=== PATIENT | female | born 1990 | race Caucasian/White ===

== ENCOUNTER 2019-02-02 14:38 | Inpatient (IN) | payer BC ==
[~2019-02-02] VITALS: Ht 163.8 cm; Wt 94.5 kg
[2019-02-26] VITALS (18 sets, daily range): BP systolic 97–126; BP diastolic 48–80; PULSE 60–89; TEMP 97.7–98.5
[2019-02-26 06:19] LABS: BASO % 0.3 % (0.0-2.0); EOS # 0.1 (0.0-0.7); EOS % 0.9 % (0-4.0); GRAN # 7.5 (1.4-6.5); HEMATOCRIT 33.3 % (37.0-47.0); LYMPH # 2.6 (1.2-3.4); LYMPH % 23.5 % (20.0-51.0); MEAN CELL VOLUME 89 fl (80.0-100.0); MEAN CORPUSCULAR HEMOGLOBIN 30 pg (27.0-31.0); MEAN CORPUSCULAR HGB CONC 33 g/dl (33.0-37.0); MONO # 0.8 (0.1-0.6); MONO % 6.9 % (1.7-9.3); PLATELET COUNT 206 K/mm3 (130-400); RED BLOOD COUNT 3.73 M/mm3 (4.10-5.30)
[2019-02-26] MEDS ORDERED: ZOLOFT 25MG25 MG PO (06:51)
[2019-02-26] MEDS ORDERED: PRENATAL MVI (06:52)
[2019-02-26] MEDS ORDERED: MOTRIN 800800 MG/TAB PO (08:21)
[2019-02-26] MEDS ORDERED: PERCOCET 325 MG1 TA2 PO (08:21)
--- NOTE | 2019-02-26 12:47 | NUR ---
Initial visit; Mom and Grandma thanked Heel Stainer for offering congratulations for the new little girl in their family. Heel Stainer offered God's blessings and thanked Mom for choosing [place].
--- NOTE | 2019-02-26 15:19 | NUR ---
Pt to restroom via standby assist. [place] removed. Pericare, clean pad, mesh underwear, clean gown provided. Bleeding noted to be WNL. Slight swelling of perineum noted. Pt assisted back to bed.
[2019-02-27 04:02] VITALS: BP 103/52; PULSE 79; TEMP 97.1
[2019-02-27 08:00] VITALS: BP 97/61; PULSE 84; TEMP 97.7
[2019-02-27 17:45] VITALS: BP 115/56; PULSE 83; TEMP 98.3
[2019-02-27 22:15] VITALS: BP 110/62; PULSE 77; TEMP 98.2
[2019-02-28 09:00] VITALS: BP 120/51; PULSE 90; TEMP 97.8
== END 2019-02-28 11:45 | disposition home or self-care (01) | DRG 788 ==
LOC: OB 02-26 05:30 → LDR 02-26 14:37 → OB 02-28 11:45
PROVIDERS: ADMIT Obstetrics & Gynecology
PROC: 10D00Z1 Extraction of Products of Conception, Low, Open Approach (ICD-10-PCS; principal; 2019-02-26)
DX: O34.211 Maternal care for low transverse scar from previous cesarean delivery (principal); O99.344 Other mental disorders complicating childbirth; F41.9 Anxiety disorder, unspecified; F32.9 Major depressive disorder, single episode, unspecified; O99.213 Obesity complicating pregnancy, third trimester; O99.513 Diseases of the respiratory system complicating pregnancy, third trimester; J45.909 Unspecified asthma, uncomplicated; Z3A.39 39 weeks gestation of pregnancy; Z37.0 Single live birth
CPT/HCPCS: J0690; J1885; J2175; J2370; J2405; J2550; J2590; J3010; J7120

== ENCOUNTER → 2020-12-15 | Outpatient (CLI) | payer BC ==
[~2020-12-15] MED LIST: IBU800 M1 PO; MOTRIN 800800 MG/TAB PO; PERCOCET 325 MG1 TA2 PO; PRENATAL MVI; ZOLOFT 25MG25 MG PO
== END ==
LOC: ZCOL.LAB
DX: Z20.822 Contact with and (suspected) exposure to COVID-19 (principal)

== ENCOUNTER 2020-12-18 04:39 | Inpatient (IN) | payer BC ==
[2020-12-18] VITALS (18 sets, daily range): BP systolic 94–129; BP diastolic 43–748; PULSE 6–97; TEMP 97.8–98.6
[~2020-12-18] VITALS: Ht 165.1 cm; Wt 91.8 kg
[~2020-12-18 04:39] MED LIST changes: -IBU800 M1 PO
--- NOTE | 2020-12-18 06:00 | NUR ---
Pt arrives on unit ambulatory with FOB. Admission assessment completed. Consents signed. Social service consult initiaited for answering "yes" to "thoughts of harming self within last month." Denies vaginal bleeding, LOF, regular ctx and reports GFM.
[2020-12-18 06:40] LABS: BASO # 0.1 (0.0-0.2); BASO % 0.4 % (0.0-2.0); EOS # 0.2 (0.0-0.7); EOS % 1.1 % (0-4.0); GRAN # 9.1 (1.4-6.5); GRAN % 67.5 % (42.2-75.2); HEMOGLOBIN 11.7 g/dl (12.5-16.0); LYMPH # 3.1 (1.2-3.4); LYMPH % 23.3 % (20.0-51.0); MEAN CELL VOLUME 86 fl (80.0-100.0); MEAN CORPUSCULAR HEMOGLOBIN 28 pg (27.0-31.0); MEAN CORPUSCULAR HGB CONC 33 g/dl (33.0-37.0); MEAN PLATELET VOLUME 10.6 fl (7.4-10.4); MONO # 0.9 (0.1-0.6); PLATELET COUNT 231 K/mm3 (130-400); RED BLOOD COUNT 4.15 M/mm3 (4.10-5.30); REDCELL DISTRIBUTION WIDTH-CV 15.9 % (11.5-14.5)
[2020-12-18 06:43] LABS: HEMATOCRIT 35.8 % (37.0-47.0)
--- NOTE | 2020-12-18 11:19 | NUR ---
LEONARD responded to consult. The patient answered yes to thoughts of harming oneself within the past month. LEONARD met with the patient and her /father of baby, Jarrell (ph#[phone]). The patient lives in [place] with her and two other children. The children are 4 and 1 1/2-years-old. The patient works at [employer]. She states that they have a crib, carseat, and all supplies for baby. They will not be applying for WIC. The patient has a history of anxiety and depression. SW addressed the patient's answer of yes for harming oneself. The patient reports that she does not have a plan. She states that she is seeing someone for her mental health. She states that she talk to a a therapist for her OCD, via Telehealth. She reports that the telehealth is an application on her phone. The patient was not tested for drugs. Her and her had no concerns about bringing baby home upon discharge. LEONARD updated the patient's RN on the above. No additional needs at this time.
[2020-12-19 03:30] VITALS: BP 105/60; PULSE 61; TEMP 97.8
--- NOTE | 2020-12-19 05:51 | NUR ---
PATIENT WAS AMBULATORY OVERNIGHT AND CALLED FOR OUTPUT PER THIS NURSE REQUEST. 2/5 VOIDS WERE RED TINTED AND PT REPORTED 2 SMALL (QUARTER SIZE) CLOTS. ADVISED PT TO KEEP THE CLOT FOR STAFF TO SEE AND LET US KNOW OF ANY VAGINAL BLEEDING. EDUCATED PT ON INTENT OF STAFF FOLLOWING BLEEDING. WILL PASS ON TO DAY SHIFT. VSS STABLE WITH 3/10 TO 7/10 PAIN REPORTED OVERNIGHT.
[2020-12-19 07:45] VITALS: BP 107/67; PULSE 70; TEMP 97.8
[2020-12-19 15:40] VITALS: BP 107/53; PULSE 71; TEMP 98.3
[2020-12-19 19:30] VITALS: BP 110/60; PULSE 77; TEMP 97.8
--- NOTE | 2020-12-20 07:45 | NUR ---
PATIENT STATES DR IBARRA GAVE HER A PRESCRIPTION FOR ZOLOFT, WILL START WHEN SHE GOES HOME. PATIENT STATES SHE SEES A THERAPIST FOR OCD, SO WILL TALK WITH THERAPIST ABOUT PPD ALSO.
[2020-12-20 08:30] VITALS: BP 109/67; PULSE 70; TEMP 98
[2020-12-20] MEDS ORDERED: IBU800 M1 PO (09:17)
[2020-12-20] MEDS ORDERED: PERCOCET 325 MG1 TA2 PO (09:17)
--- NOTE | 2020-12-20 10:20 | NUR ---
PATIENT REFUSED TDAP
--- NOTE | 2020-12-20 15:36 | NUR ---
SW consult recieved about patient who scored on SI complications. 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 Patient reports that she has been prescribed Zoloft from Dr. Meyers to support depressive moods. Patient reports that she is feeling okay right now. in room reports that he will be okay with being home over the next 8 weeks to support family. Patient shares that EMR contact is Jarrell Tapia and her numebr is [phone]. Verified address and phone numbers with patient. PCP is Cheko Otto at [facility] and RX carleen at [facility] in on [address], educated on supports and services no concern for baby gave resource packet.
== END 2020-12-20 10:25 | disposition home or self-care (01) | DRG 788 ==
LOC: LDR 04:39 → OB 05:42
PROVIDERS: ADMIT Obstetrics & Gynecology
PROC: 10D00Z1 Extraction of Products of Conception, Low, Open Approach (ICD-10-PCS; principal; 2020-12-18)
DX: O40.3XX0 Polyhydramnios, third trimester, not applicable or unspecified (principal); O99.344 Other mental disorders complicating childbirth; F41.9 Anxiety disorder, unspecified; F32.9 Major depressive disorder, single episode, unspecified; O99.214 Obesity complicating childbirth; E66.9 Obesity, unspecified; O99.02 Anemia complicating childbirth; D64.9 Anemia, unspecified; Z3A.39 39 weeks gestation of pregnancy; Z37.0 Single live birth; Z88.0 Allergy status to penicillin
CPT/HCPCS: J0690; J1885; J2370; J2405; J2590; J7120